=== PATIENT | male | born 1990 ===

== ENCOUNTER 2024-01-27 09:23 | Outpatient (CLI) | payer OTHER | END 2024-01-27 09:24 | disposition home or self-care (01) | LOC: CSHULT 09:23 | PROVIDERS: ATTEND Internal Medicine Gastroenterology | DX: R79.89 Other specified abnormal findings of blood chemistry (principal); E66.9 Obesity, unspecified; K76.0 Fatty (change of) liver, not elsewhere classified | CPT/HCPCS: 76705 ==